=== PATIENT | female | born 2000 | race Caucasian/White ===

== ENCOUNTER 2022-01-18 01:10 | Inpatient (IN) | payer OTHER ==
[2022-01-18 01:52] LABS: BILIRUBIN NEGATIVE (NEGATIVE); BLOOD NEGATIVE Ery/uL (NEGATIVE); CLARITY CLEAR (CLEAR); COLOR YELLOW (YELLOW); GLUCOSE (U) NORMAL (NORMAL); LEUKOCYTES NEGATIVE Leu/uL (NEGATIVE); NITRITE NEGATIVE (NEGATIVE); PROTEIN NEGATIVE (NEGATIVE); SPECIFIC GRAVITY 1.015 (1.001-1.030); UROBILINOGEN 0.2 mg/dL (0.2-1.0); pH 6.5 (5.0-9.0)
[2022-01-18 03:07] LABS: HCT 31.8 % (37.0-47.0); HGB 9.7 g/dl (12.5-16.0); MCH 23.2 pg (25.0-31.0); MCHC 30.5 g/dL (32.0-36.0); MCV 75.9 fL (78.0-100.0); MPV 10.2 fL (6.0-9.5); RBC 4.19 M/uL (4.20-5.40); RDW 24.2 % (11.5-14.0); WBC 7.5 K/uL (4.0-10.5)
[2022-01-19 07:55] LABS: HCT 31.8 % (37.0-47.0); MCH 23.3 pg (25.0-31.0); MCHC 31.4 g/dL (32.0-36.0); MPV 9.8 fL (6.0-9.5); RBC 4.3 M/uL (4.20-5.40); WBC 10.7 K/uL (4.0-10.5)
== END 2022-01-20 12:00 | disposition home or self-care (01) | DRG 806 ==
LOC: FOB 01:10
PROVIDERS: Obstetrics & Gynecology; ADMIT Obstetrics & Gynecology
PROC: 10E0XZZ Delivery of Products of Conception, External Approach (ICD-10-PCS; principal; 2022-01-18)
PROC: 0HQ9XZZ Repair Perineum Skin, External Approach (ICD-10-PCS; 2022-01-18)
PROC: 3E033VJ Introduction of Other Hormone into Peripheral Vein, Percutaneous Approach (ICD-10-PCS; 2022-01-18)
DX: O99.02 Anemia complicating childbirth (principal); D62 Acute posthemorrhagic anemia; Z37.0 Single live birth; O99.824 Streptococcus B carrier state complicating childbirth; D50.9 Iron deficiency anemia, unspecified; Z3A.39 39 weeks gestation of pregnancy; O75.89 Other specified complications of labor and delivery; O70.9 Perineal laceration during delivery, unspecified; Z82.79 Family history of other congenital malformations, deformations and chromosomal abnormalities; Z86.16 Personal history of COVID-19
CPT/HCPCS: 36415; 81003; 86900; 86901; J2405; J2540; J7120